=== PATIENT | female | born 1955 | race Caucasian/White ===

== ENCOUNTER → 2020-07-22 | Outpatient (CLI) | payer MEDICARE ==
--- NOTE | 2020-07-22 14:44 | CTL ---
EXAMINATION TYPE: CT Low Dose Lung DATE OF EXAM ORDERED: 07/22/2020 COMPARISON: HISTORY: . Low Dose CT Lung Screening CT DLP: 42.[address] CTDI: 1.3 mGy IV CONTRAST USED: None. SCREENING VISIT: First visit COMPARISON: None. TECHNIQUE: Low dose computed tomography scan was performed through the chest at 1 millimeter thick se ctions and reconstructed images in the coronal plane at [address] DIAGNOSTIC QUALITY: Satisfactory FINDINGS: LUNG NODULES: Not presentLeft lung: no nodules identified.Right lung: no nodules identified. LUNGS: COPD: Severity: None Fibrosis: Severity:None Lymph nodes: None Other findings: None RIGHT PLEURAL SPACE: Effusion: None Calcification: None Thickening: None Pneumothorax: None LEFT PLEURAL SPACE: Effusion: None Calcification: None Thickening: None Pneumothorax: None HEART: Heart Size: Mildly enlarged Coronary calcification: Mild Pericardial effusion: None OTHER FINDINGS: Upper abdomen: No significant abnormality Bony thorax: Degenerative changes Supraclavicular region: No significant abnormalityOther: No significant abnormalityI IMPRESSION: No suspicious nodules seen. FOLLOW UP CT CHEST RECOMMENDATION: Follow-up screening in one year CT LUNG RAD: LUNG RAD CATEGORY negative category 1
== END | disposition home or self-care (01) ==
LOC: RADCTMAIN 13:32
PROVIDERS: ATTEND Family Medicine
DX: Z12.2 Encounter for screening for malignant neoplasm of respiratory organs (principal); F17.210 Nicotine dependence, cigarettes, uncomplicated
CPT/HCPCS: 71271

== ENCOUNTER → 2020-08-09 | Outpatient (CLI) | payer MEDICARE ==
--- NOTE | 2020-08-11 07:02 | MR ---
EXAMINATION TYPE: MR lumbar spine wo con DATE OF EXAM: 08/09/2020 COMPARISON: NONE HISTORY: Low back pain that goes down left leg to toes for 2 and a half months. Radiculopathy per ord er. TECHNIQUE: Multiplanar, multisequence imaging of the lumbar spine is performed without IV contrast. FINDINGS: There is dextroconvex scoliosis centered at L1 level. Sagittal images of the lumbar spine s how vertebral body heights and alignment to appear satisfactory. Multilevel disc desiccation is prese nt. The disc space heights are fairly well maintained. The conus medullaris is normal in position and signal ending inferior T12 level. There is 9 mm Tarlov cyst posterior S1 level sagittal image 7. Th e bone marrow signal intensity is within normal limits. Sagittal images show posterior disc herniations at T10-T11 and T11-T12 levels mildly effacing the ant erior thecal sac. Axial images at T12-L1 and L1-L2 levels appear within normal limits. Axial images at L2-L3 level shows mild facet degenerative changes bilaterally. Spinal canal preserved . Axial images at L3-L4 level show mild broad disc bulge and mild facet degenerative changes bilaterall y. There is mild effacement of the anterior thecal sac. Patent bilateral neural foramina. Axial images at L4-L5 level shows moderate facet degenerative changes bilaterally. There is mild broa d disc bulge with right paracentral disc protrusion component effacing the anterior thecal sac axial image 12, patent bilateral neural foramina. Axial images at L5-S1 level show moderate facet degenerative changes bilaterally. Spinal canal is pre served. Patent bilateral neural foramina. Paraspinal muscle bulk is maintained. Moderately distended stomach is felt present. IMPRESSION: Multilevel [id number] degenerative changes in the lumbar spine as detailed above, n o significant focal herniation seen to account for patient's radiculopathy type symptoms however..
== END ==
LOC: RADMRIMAIN 10:40
PROVIDERS: ATTEND Physician Assistant
DX: M51.16 Intervertebral disc disorders with radiculopathy, lumbar region (principal); M47.27 Other spondylosis with radiculopathy, lumbosacral region
CPT/HCPCS: 72148

== ENCOUNTER → 2021-03-22 | Outpatient (CLI) | payer MEDICARE ==
[2021-03-22 20:18] LABS: Protein, Total 6.8 g/dL (6.2-8.2)
[2021-03-23 16:20] LABS: Albumin 4.03 g/dL (3.80-4.90); Gamma Globulin 0.8 g/dL (0.70-1.50)
== END | disposition home or self-care (01) ==
LOC: LABWHC1 14:27
PROVIDERS: ATTEND Psychiatry & Neurology Pain Medicine
DX: G62.9 Polyneuropathy, unspecified (principal)
CPT/HCPCS: 36415; 83519; 84165; 85652; 86140

== ENCOUNTER → 2021-07-24 | Outpatient (CLI) | payer MEDICARE, OTHER ==
--- NOTE | 2021-07-26 11:12 | P.ARTDOP ---
Arterial Doppler LOWER EXTREMITY ARTERIAL DOPPLER: DATE OF SERVICE: 07/24/2021 Reason for study: Pain left lower leg. Doppler waveforms: Atypical bilaterally throughout. Blunted digital waveforms.. Pulse volume recording: []. Pressure gradients: Main gradient is above the thigh level. Ankle-brachial indices: 0.29 on the right and 0.3 on the left. Toe brachial indices: Toe waveforms to blunted to measure pressures Impression: Suggests severe aortoiliac occlusive process bilaterally. Vascular specialty assessment recommended.
== END | disposition home or self-care (01) ==
LOC: RADUSWWP 13:55
PROVIDERS: ATTEND Family Medicine
DX: M79.662 Pain in left lower leg (principal); M79.661 Pain in right lower leg; F17.210 Nicotine dependence, cigarettes, uncomplicated
CPT/HCPCS: 93923

== ENCOUNTER → 2021-08-08 | Outpatient (CLI) | payer MEDICARE, OTHER | END | disposition home or self-care (01) | LOC: LABWHC1 10:45 | PROVIDERS: ATTEND Psychiatry & Neurology Neurology | DX: Z01.812 Encounter for preprocedural laboratory examination (principal) | CPT/HCPCS: 36415; 93005 ==

== ENCOUNTER → 2022-08-27 | Outpatient (CLI) | payer MEDICARE ==
[2022-08-27 13:12] LABS: African American GFR (CKD) >90 (>60 ml/min/1.73 sqM); Blood Urea Nitrogen 14 mg/dL (7-17); Non-African American GFR(CKD) >90 (>60 ml/min/1.73 sqM)
--- NOTE | 2022-08-27 16:04 | CT ---
EXAMINATION TYPE: CT angio neck DATE OF EXAM: 08/27/2022 COMPARISON: None HISTORY: 67-year-old female I65.29, Carotid stenosis. TECHNIQUE: Contiguous axial scanning of the neck performed with IV Contrast, patient injected with 65 ml mL of Isovue 370. Coronal/sagittal reconstructions performed. 3-D reconstructions generated on a d edicated independent workstation. NASCET criteria was utilized to determine the degree of ICA narrowi ng. CT DLP: 176.7 mGycm Automated exposure control for dose reduction was used. FINDINGS: There is bovine configuration to the aortic arch. Mild atherosclerotic change at the origin of the le ft subclavian artery. Additional mild atherosclerotic narrowing at the origin of the right subclavian artery. The vertebral arteries are codominant and patent throughout their course. Visualized upper lungs shows emphysematous change and biapical pleural parenchymal scarring. The right common carotid artery is patent. Minimal atherosclerotic calcification right carotid bulb without significant narrowing. The left common carotid artery is patent. Punctate metastatic calcification proximal left ICA without any significant narrowing. There is moderate lingual tonsillar hypertrophy. Possible 7 mm mucosal retention cyst along the right lingual tonsils. It is asymmetric effacement of the right vallecular space which can be evaluated wi th direct visualization. Bilateral scattered calcifications within the bilateral carotid siphons. IMPRESSION: 1. MINIMAL OR MILD ATHEROSCLEROTIC CHANGE AT THE BILATERAL PROXIMAL ICA's. NO HEMODYNAMICALLY SIGNIFI CANT STENOSIS ON EITHER SIDE. 2. MILD ATHEROSCLEROTIC NARROWING AT THE ORIGIN OF THE BILATERAL SUBCLAVIAN ARTERIES. 3. MODERATE LINGUAL TONSILLAR HYPERTROPHY. THERE IS ASYMMETRIC EFFACEMENT OF THE RIGHT VALLECULAR SPA CE WHICH COULD BE SECONDARY TO ASYMMETRIC TONSILLAR HYPERTROPHY, POSSIBLE UNDERLYING 7 MM MUCOSAL RET ENTION CYST. CORRELATE WITH DIRECT INSPECTION TO EXCLUDE OTHER MUCOSAL LESION. 4. COPD.
== END | disposition home or self-care (01) ==
LOC: RADCTMAIN 11:58
PROVIDERS: ATTEND Internal Medicine Interventional Cardiology
DX: I65.23 Occlusion and stenosis of bilateral carotid arteries (principal); J35.1 Hypertrophy of tonsils; J44.9 Chronic obstructive pulmonary disease, unspecified
CPT/HCPCS: 82565; 84520; 70498; Q9967

== ENCOUNTER → 2022-09-20 | Outpatient (CLI) | payer MEDICARE ==
[2022-09-21 02:05] LABS: African American GFR (CKD) 105.4 (60.0-200.0); Albumin 4.3 g/dL (3.8-4.9); Albumin/Globulin Ratio 1.59 (1.60-3.17); Anion Gap 10.2 mmol/L (10.00-18.00); BUN/Creat Ratio 23.86 Ratio (12.00-20.00); Blood Urea Nitrogen 16.7 mg/dL (9.0-27.0); Calcium 9.8 mg/dL (8.7-10.3); Carbon Dioxide 26.8 mmol/L (20.0-27.5); Globulin 2.7 g/dL (1.6-3.3); Non-African American GFR(CKD) 90.9 (60.0-200.0); Potassium 4.6 mmol/L (3.5-5.5); Total Bilirubin 0.3 mg/dL (0.30-1.20)
== END | disposition home or self-care (01) ==
LOC: LABWHC1 12:02
PROVIDERS: ATTEND Nurse Practitioner Family
DX: Z01.812 Encounter for preprocedural laboratory examination (principal); Z51.81 Encounter for therapeutic drug level monitoring
CPT/HCPCS: 36415; 80053

== ENCOUNTER → 2022-12-05 | Outpatient (CLI) | payer MEDICARE ==
--- NOTE | 2022-12-05 20:25 | CTL ---
EXAMINATION TYPE: CT Low Dose Lung DATE OF EXAM ORDERED: 12/05/2022 HISTORY: Nicotine dependence. Lung cancer screening CT DLP: 39.[address] CTDI: 1.1 mGy Automated exposure control for dose reduction was used. SCREENING VISIT: Subsequent COMPARISON: 07/22/2020 TECHNIQUE: Low dose computed tomography scan was performed through the chest at 1 mm thick sections a nd reconstructed images in the coronal plane at [address] DIAGNOSTIC QUALITY: Satisfactory FINDINGS: LUNG NODULES: None. LUNGS: COPD: Severity: Mild There may be some mild chronic bronchitis present. Fibrosis: Severity: None Lymph nodes: None Other findings: None RIGHT PLEURAL SPACE: Effusion: None Calcification: None Thickening: None Pneumothorax: None LEFT PLEURAL SPACE: Effusion: None Calcification: None Thickening: None Pneumothorax: None HEART: Heart Size: Normal Coronary calcification: Mild Pericardial effusion: None OTHER FINDINGS: Upper abdomen: Normal Bony thorax: Normal Supraclavicular region: Normal Other: Ascending thoracic aorta at the level the main pulmonary artery measures 3.0 cm. The main pul monary artery at the bifurcation measures 1.9 cm. IMPRESSION: 1. Normal low-dose CT chest FOLLOW UP CT CHEST RECOMMENDATION: Follow-up low-dose CT chest [address] LUNG RAD: 1
== END | disposition home or self-care (01) ==
LOC: RADCTMAIN 09:50
PROVIDERS: ATTEND Family Medicine
DX: Z12.2 Encounter for screening for malignant neoplasm of respiratory organs (principal); F17.210 Nicotine dependence, cigarettes, uncomplicated
CPT/HCPCS: 71271

== ENCOUNTER 2024-12-13 21:09 | Emergency (ER) | payer MEDICARE, OTHER ==
[2024-12-13 21:15] VITALS: TEMP 97.8
[2024-12-13] MEDS: HYDROmorphone 1 MG/ML 1 ML SYRINGE IM STA (21:26)
--- NOTE | 2024-12-13 21:48 | XR ---
EXAMINATION TYPE: XR wrist complete LT DATE OF EXAM: 12/13/2024 9:33 PM COMPARISON: None CLINICAL INDICATION: Female, 69 years old with history of pain; PHH, pain TECHNIQUE: XR wrist complete LT; examined in the Frontal, navicular, lateral, and oblique. FINDINGS: Comminuted displaced fracture of the distal radial metadiaphysis with dorsal dislocation of the distal fracture fragment. Additionally, there is a mildly displaced fracture of the lateral dist al ulna. Visualized carpal alignment appears grossly maintained. IMPRESSION: 1. Comminuted displaced fracture of the distal radius as above. 2. Mildly displaced fracture of the lateral distal ulna. [facility], , 12/13/2024 9:45 PM
[2024-12-13] MEDS: SODIUM CHLORIDE 0.9% 500 ML 500 ML IV ONE (21:51)
[2024-12-13] MEDS: PROPOFOL 10 MG/ML 20 ML VIAL IV ONE (22:07)
--- NOTE | 2024-12-13 22:36 | ED ---
Fall HPI - General Chief Complaint: Fall Stated Complaint: Fall- left wrist injury Time Seen by Provider: 12/13/24 21:16 Source: patient, RN notes reviewed Mode of arrival: ambulatory Limitations: no limitations - History of Present Illness Initial Comments: 69-year-old female presents emerged part complaint of slip and fall. Patient states she slipped in the shower. Catching herself with her left wrist. Patient had no head injury loss conscious. She complains of left wrist pain with swelling deformity. - Related Data Allergies Allergy/AdvReac Type Severity Reaction Status Date / Time No Known Allergies Allergy Verified 12/13/24 21:11 Review of Systems ROS Statement: Those systems with pertinent positive or pertinent negative responses have been documented in the HPI. ROS Other: All systems not noted in ROS Statement are negative. Past Medical History Past Medical History: Hyperlipidemia, Hypertension Additional Past Medical History / Comment(s): neuropathy History of Any Multi-Drug Resistant Organisms: None Reported Past Surgical History: Coronary Bypass/CABG, Joint Replacement, Orthopedic Surgery Additional Past Surgical History / Comment(s): hip Past Psychological History: No Psychological Hx Reported Smoking Status: Current every day smoker Past Alcohol Use History: Rare Past Drug Use History: Marijuana General Exam Limitations: no limitations General appearance: alert, in no apparent distress Head exam: Present: atraumatic, normocephalic, normal inspection Respiratory exam: Present: normal lung sounds bilaterally. Absent: respiratory distress, wheezes, rales, rhonchi, stridor Cardiovascular Exam: Present: regular rate, normal rhythm, normal heart sounds. Absent: systolic murmur, diastolic murmur, rubs, gallop, clicks Extremities exam: Present: other (Left distal wrist obvious deformity neuro vascular intact) Course Vital Signs 12/13/24 12/13/24 12/13/24 21:11 21:57 22:08 Temperature 97.8 F Pulse Rate 81 73 68 Respiratory 18 18 16 Rate Blood Pressure 175/76 147/74 156/77 O2 Sat by Pulse 98 94 L 91 L Oximetry 12/13/24 12/13/24 12/13/24 22:11 22:14 22:17 Temperature Pulse Rate 70 67 72 Respiratory 15 16 14 Rate Blood Pressure 146/84 146/86 146/84 O2 Sat by Pulse 92 L 91 L 93 L Oximetry 12/13/24 22:20 Temperature Pulse Rate 71 Respiratory 17 Rate Blood Pressure 153/77 O2 Sat by Pulse 93 L Oximetry Procedures - [place] Protocol (Time Out) Procedure Performed:: closed left wrist reduction Performing Provider: Antony Mayorga Nurse: Gina Amato Respiratory Therapist: Yessenia Timmons - Orthopedic Fracture Reduction Fracture #1 Consent Obtained: written consent Side: left Fracture Reduction Location: radius Analgesia: procedural sedation Technique: direct manipulation, traction/counter-traction Post Reduction X-rays Demonstrate: anatomical reduction Post-Reduction Neuro Exam: intact Post-Reduction Vascular Exam: intact Splint Applied: Yes Patient Tolerated Procedure: well, no complications - Orthopedic Splinting/Casting Injury #1 Side: left Upper Extremity Injury Location: short arm, wrist Upper Extremity Immobilizer: sugar tong splint, synthetic pre-padded splint Medical Decision Making - Medical Decision Making Was pt. sent in by a medical professional or institution (Dr. PA, FIRE ALARM OPERATOR, urgent care, hospital, or [place] [facility] facility...) When possible be specific @ -No Did you speak to anyone other than the patient for history (EMS, parent, family, police, friend...)? What history was obtained from this source @ -No Did you review nursing and triage notes (agree or disagree)? Why? @ -I reviewed and agree with nursing and triage notes Were old charts reviewed (outside hosp., previous admission, EMS record, old EKG, old radiological studies, urgent care reports/EKG's, [place] health [facility] facility records)? Report findings @ -No old charts were reviewed Differential Diagnosis (chest pain, altered mental status, abdominal pain women, abdominal pain men, vaginal bleeding, weakness, fever, dyspnea, syncope, headache, dizziness, GI bleed, back pain, seizure, CVA, palpatations, mental health, musculoskeletal)? @ -Fall, wrist pain, wrist fracture EKG interpreted by me (3pts min.). @ -None X-rays interpreted by me (1pt min.). @ -X-ray left wrist comminuted distal radius fracture with displacement distal ulna fracture X-ray limited to left wrist adequate reduction distal radius and ulna fracture CT interpreted by me (1pt min.). @ -None done U/S interpreted by me (1pt. min.). @ -None done What testing was considered but not performed or refused? (CT, X-rays, U/S, labs)? Why? @ -None What meds were considered but not given or refused? Why? @ -None Did you discuss the management of the patient with other professionals (professionals i.e. , PA, FIRE ALARM OPERATOR, lab, RT, psych nurse, rn social services, rolling machine tender, teacher, zoology technical officer, cyanide case hardener)? Give summary @ -No Was smoking cessation discussed for >3mins.? @ -No Was critical care preformed (if so, how long)? @ -No Were there social determinants of health that impacted care today? How? (Homelessness, low income, unemployed, alcoholism, drug addiction, transportation, low edu. Level, literacy, decrease access to med. care, custodial, rehab)? @ -No Was there de-escalation of care discussed even if they declined (Discuss DNR or withdrawal of care, Hospice)? DNR status @ -No What co-morbidities impacted this encounter? (DM, HTN, Smoking, COPD, CAD, Cancer, CVA, ARF, Chemo, Hep., AIDS, mental health diagnosis, sleep apnea, morbid obesity)? @ -None Was patient admitted / discharged? Hospital course, mention meds given and route, prescriptions, significant lab abnormalities, going to OR and other pertinent info. @ -Discharge patient had a fall distal radius and ulna fracture (sedation reduction and splinting were performed patient will follow-up with orthopedics. Undiagnosed new problem with uncertain prognosis? @ -No Drug Therapy requiring intensive monitoring for toxicity (Heparin, Nitro, Insulin, Cardizem)? @ -No Were any procedures done? @ -No Diagnosis/symptom? @ -Displaced distal radius and ulna fracture Acute, or Chronic, or Acute on Chronic? @ -Acute Uncomplicated (without systemic symptoms) or Complicated (systemic symptoms)? @ -Complicated Side effects of treatment? @ -No Exacerbation, Progression, or Severe Exacerbation? @ -No Poses a threat to life or bodily function? How? (Chest pain, [place], [place], pneumonia, PE, COPD, DKA, ARF, appy, cholecystitis, CVA, Diverticulitis, Homicidal, Suicidal, threat to staff... and all critical care pts) @ -No Disposition Clinical Impression: Fall, Closed fracture distal radius and ulna Disposition: HOME SELF-CARE Condition: Stable Instructions (If sedation given, give patient instructions): Moderate Sedation (ED), Arm Fracture in Adults (ED) Additional Instructions: Please return to the Emergency Department if symptoms worsen or any other concerns. Is patient prescribed a controlled substance at d/c from ED?: No Referrals: Omid Da Silva DO [Primary Care Provider] - 1-2 days Reyes Briggs MD [STAFF PHYSICIAN] - 1-2 days Time of Disposition: 22:35
--- NOTE | 2024-12-13 23:27 | XR ---
EXAM: XR Left Wrist, 1 View CLINICAL HISTORY: Postreduction TECHNIQUE: Frontal or lateral view of the left wrist. COMPARISON: 4 hours FINDINGS: Bones/joints: Interval reduction in the previously noted angulation of the distal left radial metaphyseal fracture. No significant residual angulation remains. Only 2 mm posterior displacement of the distal fracture fragment in relation to the proximal radius. Soft tissues: Limited, stable. IMPRESSION: Postreduction lateral image, as detailed above.
[2024-12-13 23:51] VITALS: BP 166/86; PULSE 76; RESP 24
== END 2024-12-13 23:30 | disposition home or self-care (01) ==
LOC: EC 21:09
DX: S52.509A Unspecified fracture of the lower end of unspecified radius, initial encounter for closed fracture (principal); S52.602A Unspecified fracture of lower end of left ulna, initial encounter for closed fracture; F17.200 Nicotine dependence, unspecified, uncomplicated; W18.2XXA Fall in (into) shower or empty bathtub, initial encounter
CPT/HCPCS: 73100; 73110; 99283; 96360; 96372; 99152; 25605; J1171; J2704